=== PATIENT | female | born 1960 | race Caucasian/White ===

== ENCOUNTER → 2016-12-16 | Outpatient (CLI) | payer OTHER ==
[~2016-12-16] MED LIST: ALBU0.086 INH; AMIT25 PO; AMOX875T PO; ASPI81TA45 PO; BLAC20TA PO; CHOL50006 PO; ENAL20TA81 PO; FLOV44AE IN; FOLI1 PO; FOSA70TA PO; GLUCTAB PO; HYDR-2768 PO; MAGN250T13 PO; METH2.5 PO; MIRA33502 PO; OMEG100037 PO; OMPR20CCR PO; SIMV20 PO; TAB-TAB PO; TRAM50TA PO; XANA1TAB6 PO
--- NOTE | 2016-12-17 21:18 | EKG ---
Date Performed: 12/16/2016 Time Performed: 14:19:07 PTAGE: 56 years EKG: Sinus rhythm NONSPECIFIC T-WAVE ABNORMALITY BORDERLINE ECG PREVIOUS TRACING : 12/06/2013 09.34 DOCTOR: Jacobo Ferrera Interpretating Date/Time 12/17/2016 21:08:46
== END ==
LOC: HCAV 14:02
PROVIDERS: ATTEND Internal Medicine Gastroenterology
DX: I10 Essential (primary) hypertension (principal); R94.31 Abnormal electrocardiogram [ECG] [EKG]
CPT/HCPCS: 93005

== ENCOUNTER 2017-01-12 20:12 | Emergency (ER) | payer OTHER ==
[~2017-01-12] VITALS: Ht 165.1 cm; Wt 99.2 kg
[~2017-01-12 20:12] MED LIST changes: -AMOX875T PO
[2017-01-12 20:22] VITALS: BP 139/85; PULSE 91; RESP 18; TEMP 98.9; O2SAT 96
--- NOTE | 2017-01-12 21:57 | PD ---
HPI Chief Complaint: ENT Complaint Time Seen by Provider: 21:56 Travel History International Travel<30 days: No Contact w/Intl Traveler<30days: No Traveled to known affect area: No History of Present Illness HPI 56-year-old female with a history of hypertension, hyperlipidemia, diabetes, asthma presents to the emergency department for evaluation of right ear pain for 2 weeks. Patient states that both of her ears were hurting and she saw her PCP 2 weeks ago and was told that they were slightly red but that she didn't require an antibiotic, was given some eardrops which she used and helped for the first 2 days. States that since then the pain is worsening for the past 2 weeks. States that the pain is aggravated with swallowing, causes her ear to her. Denies any fever, chills, nausea, vomiting, cough or cold symptoms, decreased hearing, dizziness. No other complaints. PFSH Past Medical History Asthma: Yes Autoimmune Disease: Yes (RHEUMATOID ARTHRITIS) Blood Disorders: No Anxiety: Yes Cancer: No Cardiac Catheterization: No Cardiovascular Problems: No High Cholesterol: Yes Cerebrovascular Accident: Yes Diabetes: Yes Diminished Hearing: No Endocrine: No Fibromyalgia: Yes Gastrointestinal Disorders: Yes (REFLUX) GERD: Yes Genitourinary: No Headaches: Yes Hepatitis: No Hiatal Hernia: No Hypertension: Yes Immune Disorder: No Inguinal Hernia: Yes (UMBILLICAL, SURGICALLY REPAIRED) Musculoskeletal: Yes (RHEUMATOID ARTHRITIS, FIBROMYALGIA) Neurologic: No Psychiatric: No Reproductive: No Respiratory: No Immunizations Current: Yes Myocardial Infarction: No Pneumonia: Yes (CHILDHOOD) Thyroid Disease: No ?: Not Menopausal: Yes : 5 Para: 4 : 1 Ovarian Cysts: Yes Past Surgical History Abdominal Surgery: Yes (UMB. HERNIA) AICD: No Cardiac Surgery: No Section: Yes (X 4) Coronary Artery Bypass Graft: No Ear Surgery: No Endocrine Surgery: No Eye Surgery: No Genitourinary Surgery: No Gynecologic Surgery: Yes (4 C-SECT.) Joint Replacement: No Oral Surgery: No Pacemaker: No Thoracic Surgery: No Other Surgery: Yes (umbilical hernia repair 01) Social History Alcohol Use: No Tobacco Use: No Substance Use: No Allergies-Medications (Allergen,Severity, Reaction): Coded Allergies: Codeine (Verified Allergy, Severe, RASH,HIVES, 01/12/17) Reported Meds & Prescriptions Reported Meds & Active Scripts Active Amoxicillin 875 Mg Tab 875 Mg PO BID 10 Days Rheumatrex (Methotrexate) 2.5 Mg Tab 15 Mg PO WEEKLY 30 Days Tramadol Hcl (Tramadol HCl) 50 Mg Tab 50 Mg PO QID NO EARLY REFILLS Folate 1 Mg Tab (Folic Acid) 1 Mg Tab 1 Mg PO DAILY Vasotec (Enalapril Maleate) 20 Mg Tab 20 Mg PO DAILY Glucophage XR 24 HR (Metformin HCl) 500 Mg Tab 500 Mg PO BIDAC Zocor (Simvastatin) 20 Mg Tab 20 Mg PO HS Elavil 25 Mg Tab (Amitriptyline Hcl) 25 Mg Tab 25 Mg PO HS Reported Multivitamin (Multivitamins) 1 Tab Tab 1 Tab PO DAILY Fish Oil 1000 mg (Golden-3 Fatty Acids) 1 Cap Cap 1 Tab PO DAILY Prilosec 20 Mg Cap (Omeprazole) 20 Mg Capcr 20 Mg PO DAILY Aspirin 81 mg EC Lo-Dose (Aspirin) 81 Mg Tab 81 Mg PO DAILY Vitamin D (Cholecalciferol) 5,000 Unit Tab 5,000 Unit PO DAILY Xanax 1 mg (Alprazolam) Alprazolam 1 mg Tab 1 Tab PO Q6H PRN Flovent [id number] Mc1 44 Mcg Aer 2 Puff IN BID Fosamax (Alendronate Sodium) 70 Mg Tab 70 Mg PO Q7D TAKE 30 MINUTES BEFORE THE MORNING MEAL, ONLY WATER Magnesium 250 Mg Tab 250 Mg PO [id number] N1 255 Gm Powd 1 Capful PO BID MIX 1 CAPFUL (17 GM) IN 8 OZ WATER Proventil Ud 0.083% (2.5 Mg/3 Ml) (Albuterol Sulfate) 2.5 Mg/3 Ml Inha 2.5 Mg INH Q4 Black Cohosh 20 Mg Tab 20 Mg PO BID Hctz (Hydrochlorothiazide) 25 Mg Tab 25 Mg PO DAILY Review of Systems Except as stated in HPI: all other systems reviewed are Neg Physical Exam Narrative GENERAL: Well-nourished and well-developed pleasant patient in no acute distress who is nontoxic appearing. SKIN: Warm and dry. HEAD: Normocephalic and atraumatic. EYES: No injection, drainage, or hyphema noted. PERRLA. EOMI. ENT: No nasal drainage noted. Oropharynx is clear. Right tympanic membranes is erythematous with effusion. Left tympanic membrane has effusion. No mastoid tenderness. NECK: Supple and the trachea is midline. No lymphadenopathy is noted throughout the cervical chains. CARDIOVASCULAR: Regular rate and rhythm. RESPIRATORY: Breath sounds are equal bilaterally with no accessory muscle use, wheezing, rhonchi, or crackles. NEUROLOGICAL: Awake, alert, and oriented. Normal speech and gait. Cranial nerves are grossly intact. Data Data Last Documented VS Vital Signs Date Time Temp Pulse Resp B/P Pulse Ox O2 Delivery O2 Flow Rate FiO2 01/12/17 20:22 98.9 91 18 139/85 96 Orders Amoxicillin (Trimox) (01/12/17 22:00) [facility] Medical Decision Making Medical Screen Exam Complete: Yes Emergency Medical Condition: Yes Differential Diagnosis Acute otitis media versus otitis externa versus URI versus less likely mastoiditis Narrative Course 56-year-old female presents to the emergency department for evaluation of right ear pain for 2 weeks. Patient is afebrile, vital signs are stable. As his otitis media with effusion. Patient will be treated with amoxicillin. Discussed supportive care. Advise follow-up with her PCP. Patient verbalizes understanding and agreement with treatment plan. Diagnosis Primary Impression: Right otitis media with effusion Referrals: Primary Care Physician Patient Instructions: General Instructions, Otitis Media (ED) Additional Instructions: Take [id number] Claritin. Take medication as prescribed. Follow-up with your Primary Care Physician. Return to the ED for any acute worsening of symptoms. Med/Other Pt SpecificInfo: Prescription(s) given Scripts Amoxicillin 875 Mg [id number] Mg PO BID 10 Days Ref 0 Prov:Re Palacio MD 01/12/17 Disposition: 01 DISCHARGE HOME Condition: Stable Laney Mejia Jan 12, 2017 21:57
[2017-01-12] MEDS ORDERED: AMOX875T PO (21:58)
[2017-01-12] MEDS ORDERED: AMOXICILLIN 875 MG TAB PO ONE (22:00)
== END 2017-01-12 23:11 | disposition home or self-care (01) ==
LOC: PHED 20:12 → PHEFT 23:11
DX: H66.91 Otitis media, unspecified, right ear (principal); I10 Essential (primary) hypertension; E11.9 Type 2 diabetes mellitus without complications; J45.909 Unspecified asthma, uncomplicated; E78.00 Pure hypercholesterolemia, unspecified
CPT/HCPCS: 99282

== ENCOUNTER 2017-12-03 14:39 | Emergency (ER) | payer OTHER ==
[~2017-12-03] VITALS: Ht 165.1 cm; Wt 95.0 kg
[~2017-12-03 14:39] MED LIST changes: +AMOX875T PO
[2017-12-03 14:42] VITALS: BP 136/71; PULSE 89; RESP 16; TEMP 98.2; O2SAT 98
[2017-12-03] MEDS ORDERED: GABA300C5 PO (15:05)
[2017-12-03] MEDS ORDERED: CANA300T PO (15:05)
[2017-12-03] MEDS ORDERED: METH2.5T PO (15:06)
[2017-12-03] MEDS ORDERED: HYDR25TA5 PO (15:06)
[2017-12-03] MEDS ORDERED: ALPR.5 PO (15:06)
[2017-12-03] MEDS ORDERED: VENTAER INH (15:06)
[2017-12-03] MEDS ORDERED: AMIT25TA9 PO (15:06)
[2017-12-03] MEDS ORDERED: ENAL20TA PO (15:06)
[2017-12-03] MEDS ORDERED: GLIP5TAB8 PO (15:06)
[2017-12-03] MEDS ORDERED: ALEN1TAB48 PO (15:06)
[2017-12-03] MEDS ORDERED: TRAM50TA PO (15:06)
--- NOTE | 2017-12-03 15:09 | PD ---
HPI Chief Complaint: ENT Complaint Time Seen by Provider: 14:49 Travel History International Travel<30 days: No Contact w/Intl Traveler<30days: No Traveled to known affect area: No History of Present Illness HPI 57-year-old female presents to the ED for evaluation of 5 day history of right ear pain. Gradual onset. Rated 8/10. Patient states that the pain radiates into the neck. Exacerbated by chewing. Patient denies fever, chills, hearing difficulties, runny nose, cold symptoms, difficulties opening and closing the mouth, recent history of swimming, use of cotton swabs. She states that she occasionally has thin drainage from the ear when she wakes up in the morning. She never had a pain like this before. Treated at home with Tylenol and ibuprofen with only some improvement of symptoms. PFSH Past Medical History Hx Anticoagulant Therapy: Yes (BABY ASA) Asthma: Yes Autoimmune Disease: Yes (RHEUMATOID ARTHRITIS) Blood Disorders: No Anxiety: Yes Cancer: No Cardiac Catheterization: No Cardiovascular Problems: Yes (HTN, CHOL) High Cholesterol: Yes Cerebrovascular Accident: Yes Diabetes: Yes Diminished Hearing: No Endocrine: No Fibromyalgia: Yes Gastrointestinal Disorders: Yes (REFLUX) GERD: Yes Genitourinary: No Headaches: Yes Hepatitis: No Hiatal Hernia: No Hypertension: Yes Immune Disorder: No Inguinal Hernia: Yes (UMBILLICAL, SURGICALLY REPAIRED) Musculoskeletal: Yes (RHEUMATOID ARTHRITIS, FIBROMYALGIA) Neurologic: No Psychiatric: No Reproductive: No Respiratory: No Immunizations Current: Yes Myocardial Infarction: No Pneumonia: Yes (CHILDHOOD) Thyroid Disease: No ?: Not Menopausal: Yes : 5 Para: 4 : 1 Ovarian Cysts: Yes Past Surgical History Abdominal Surgery: Yes (UMB. HERNIA) AICD: No Cardiac Surgery: No Section: Yes (X 4) Coronary Artery Bypass Graft: No Ear Surgery: No Endocrine Surgery: No Eye Surgery: No Genitourinary Surgery: No Gynecologic Surgery: Yes (4 C-SECT.) Joint Replacement: No Oral Surgery: No Pacemaker: No Thoracic Surgery: No Other Surgery: Yes (umbilical hernia repair 01) Social History Alcohol Use: No Tobacco Use: No Substance Use: No Allergies-Medications (Allergen,Severity, Reaction): Coded Allergies: codeine (Unverified Allergy, Severe, RASH,HIVES, 12/03/17) Reported Meds & Prescriptions Reported Meds & Active Scripts Active Pseudoephedrine (Pseudoephedrine HCl) 60 Mg Tab 60 Mg PO Q6H PRN 7 Days Ciprodex Otic Drops (Ciprofloxacin-Dexamethasone Otic Drops) 0.3-0.1% Susp 4 Drop RIGHT EAR BID 7 Days Reported Ventolin Hfa 18 GM Inh (Albuterol Sulfate) 90 Mcg/Act Aer 2 Puff INH Q6H PRN Glipizide 5 Mg Tab 5 Mg PO DAILY Take 30 minutes before a meal Xanax (Alprazolam) 0.5 Mg Tab 0.5 Mg PO Q6H PRN Alendronate (Alendronate Sodium) 70 Mg Tab 70 Mg PO Q7D Tramadol (Tramadol HCl) 50 Mg Tab 50 Mg PO Q6H PRN Methotrexate 2.5 Mg Tab 15 Mg PO Q7D Amitriptyline (Amitriptyline HCl) 25 Mg Tab 25 Mg PO HS Hydrochlorothiazide 25 Mg Tab 25 Mg PO DAILY Enalapril (Enalapril Maleate) 20 Mg Tab 40 Mg PO DAILY Invokana (Canagliflozin) 300 Mg Tab 300 Mg PO HS Take before 1st meal of day. Gabapentin 300 Mg Cap 300 Mg PO HS Review of Systems Except as stated in HPI: all other systems reviewed are Neg Physical Exam Narrative GENERAL: Well-nourished, well-developed white female in no acute distress. SKIN: Warm and dry. HEAD: Normocephalic. Atraumatic. EYES: No scleral icterus. No injection or drainage. PERRLA. EOMI. ENT: Pearly reeder tympanic membranes bilaterally. Bilateral serous effusions. Tug test positive on the right. Right external canal erythematous with small amount of thin exudate. Nasal mucosa is moist. Oropharynx without erythema, edema or exudate. NECK: Supple, trachea midline. No JVD or lymphadenopathy. CARDIOVASCULAR: Regular rate and rhythm without murmurs, gallops, or rubs. RESPIRATORY: Breath sounds clear and equal bilaterally. No accessory muscle use. GASTROINTESTINAL: Abdomen soft, non-tender, nondistended. + Bowel sounds MUSCULOSKELETAL: No cyanosis, or edema. Full, active range of motion. Strength 5/5. Neurovascularly intact. BACK: Nontender without obvious deformity. No CVA tenderness. Data Data Last Documented VS Vital Signs Date Time Temp Pulse Resp B/P (MAP) Pulse Ox O2 Delivery O2 Flow Rate FiO2 12/03/17 14:42 98.2 89 16 136/71 (24) 98 [facility] Medical Decision Making Medical Screen Exam Complete: Yes Emergency Medical Condition: Yes Differential Diagnosis Otitis externa versus otitis media versus mastoiditis versus other Narrative Course 57-year-old female presents to the ED for evaluation of 5 day history of right ear pain. Gradual onset. Rated 8/10. Patient states that the pain radiates into the neck. Exacerbated by chewing. Patient denies fever, chills, hearing difficulties, runny nose, cold symptoms, difficulties opening and closing the mouth, recent history of swimming, use of cotton swabs. She states that she occasionally has thin drainage from the ear when she wakes up in the morning. She never had a pain like this before. Patient afebrile on presentation. Physical exam reveals bilateral serous effusions without signs of otitis media. Tub test is positive on the right. The right external canal is erythematous with scant thin drainage. This is otitis externa. Patient's prescribed Ciprodex drops twice a day. She is also prescribed short course of pseudoephedrine to clear her serous effusions. She is instructed to use medications as prescribed, nothing else in the ear, continue with OTC pain medications as needed, return to the ED for worsening symptoms. She indicated understanding of instructions and is agreeable to care plan. She is stable and discharged home. Diagnosis Primary Impression: Right otitis externa Qualified Codes: H60.311 - Diffuse otitis externa, right ear Referrals: Ear / Nose / Throat Specialist Patient Instructions: General Instructions, Otitis Externa (ED) Additional Instructions: Rest, hydrate. Instill drops as prescribed. Nothing else in the ear. Sudafed every 4 hours as needed for congestion. Continue with Tylenol and ibuprofen as needed for pain and fever. Follow-up with the gear tester. Return to the ED for worsening symptoms or any urgent or emergent medical condition. Med/Other Pt SpecificInfo: Prescription(s) given Scripts Pseudoephedrine (Pseudoephedrine) 60 Mg Tab 60 MG PO Q6H Y for NASAL CONGESTION for 7 Days, #28 TAB 0 Refills Prov: Denny Olson MD 12/03/17 Ciprofloxacin-Dexamethasone Otic Drops (Ciprodex Otic Drops) 0.3-0.1% Susp 4 DROP RIGHT EAR BID for Infection for 7 Days, #1 BOTTLE 0 Refills Prov: Denny Olson MD 12/03/17 Disposition: 01 DISCHARGE HOME Condition: Sue Sorensen Dec 03, 2017 15:09
[2017-12-03] MEDS ORDERED: SUDO60TA2 PO (15:12)
[2017-12-03] MEDS ORDERED: CIPR0.3S RIGHT EAR (15:12)
== END 2017-12-03 15:49 | disposition home or self-care (01) ==
LOC: PHEFT 14:39
DX: H60.91 Unspecified otitis externa, right ear (principal); J45.909 Unspecified asthma, uncomplicated; M06.9 Rheumatoid arthritis, unspecified; I10 Essential (primary) hypertension; E11.9 Type 2 diabetes mellitus without complications; E78.00 Pure hypercholesterolemia, unspecified; M79.7 Fibromyalgia; K21.9 Gastro-esophageal reflux disease without esophagitis; Z86.73 Personal history of transient ischemic attack (TIA), and cerebral infarction without residual deficits
CPT/HCPCS: 99283

== ENCOUNTER 2018-01-18 18:34 | Emergency (ER) | payer OTHER ==
[~2018-01-18] VITALS: Ht 165.1 cm; Wt 93.6 kg
[~2018-01-18 18:34] MED LIST changes: -ALBU0.086 INH; +ALEN1TAB48 PO; +ALPR.5 PO; -AMIT25 PO; +AMIT25TA9 PO; -AMOX875T PO; -ASPI81TA45 PO; -BLAC20TA PO; +CANA300T PO; -CHOL50006 PO; +CIPR0.3S RIGHT EAR; +ENAL20TA PO; -ENAL20TA81 PO; -FLOV44AE IN; -FOLI1 PO; -FOSA70TA PO; +GABA300C5 PO; +GLIP5TAB8 PO; -GLUCTAB PO; -HYDR-2768 PO; +HYDR25TA5 PO; -MAGN250T13 PO; -METH2.5 PO; +METH2.5T PO; -MIRA33502 PO; -OMEG100037 PO; -OMPR20CCR PO; -SIMV20 PO; +SUDO60TA2 PO; -TAB-TAB PO; +VENTAER INH; -XANA1TAB6 PO
[2018-01-18 18:45] VITALS: BP 107/60; PULSE 92; RESP 20; TEMP 100.2; O2SAT 98
[2018-01-18] MEDS ORDERED: HYDR25TA5 PO (19:23)
[2018-01-18] MEDS ORDERED: ALPR.5 PO (19:23)
--- NOTE | 2018-01-18 19:24 | PD ---
HPI Chief Complaint: Cold / Flu Symptoms Time Seen by Provider: 19:17 Travel History International Travel<30 days: No Contact w/Intl Traveler<30days: No Traveled to known affect area: No History of Present Illness HPI Patient comes in the emergency department complaining of cough, congestion, fevers, generalized body aches, and nonbloody diarrhea that began yesterday. Patient reports tested positive for flu earlier today. Patient reports taking Tylenol for this last dose around 2:00 today. Patient denies any nausea , vomiting, chest pain, shortness of breath, neck pain, abdominal pain, change in bladder or back pain. Denies anything making symptoms worse. PFSH Past Medical History Hx Anticoagulant Therapy: Yes (BABY ASA) Asthma: Yes Autoimmune Disease: Yes (RHEUMATOID ARTHRITIS) Blood Disorders: No Anxiety: Yes Cancer: No Cardiac Catheterization: No Cardiovascular Problems: Yes (HTN, CHOL) High Cholesterol: Yes Cerebrovascular Accident: Yes Diabetes: Yes Patient Takes Glucophage: No Diminished Hearing: No Endocrine: No Fibromyalgia: Yes Gastrointestinal Disorders: Yes (REFLUX) GERD: Yes Genitourinary: No Headaches: Yes Hepatitis: No Hiatal Hernia: No Hypertension: Yes Immune Disorder: No Inguinal Hernia: Yes (UMBILLICAL, SURGICALLY REPAIRED) Musculoskeletal: Yes (RHEUMATOID ARTHRITIS, FIBROMYALGIA) Neurologic: No Psychiatric: No Reproductive: No Respiratory: No Immunizations Current: Yes Myocardial Infarction: No Pneumonia: Yes (CHILDHOOD) Thyroid Disease: No Tetanus Vaccination: > 5 Years Influenza Vaccination: No ?: Not Menopausal: Yes : 5 Para: 4 : 1 Ovarian Cysts: Yes Past Surgical History Abdominal Surgery: Yes (UMB. HERNIA) AICD: No Cardiac Surgery: No Section: Yes (X 4) Coronary Artery Bypass Graft: No Ear Surgery: No Endocrine Surgery: No Eye Surgery: No Genitourinary Surgery: No Gynecologic Surgery: Yes (4 C-SECT.) Joint Replacement: No Oral Surgery: No Pacemaker: No Thoracic Surgery: No Other Surgery: Yes (umbilical hernia repair ) Social History Alcohol Use: No Tobacco Use: No Substance Use: No Allergies-Medications (Allergen,Severity, Reaction): Coded Allergies: codeine (Unverified Allergy, Severe, RASH,HIVES, 01/18/18) Reported Meds & Prescriptions Reported Meds & Active Scripts Active Zofran Odt (Ondansetron Odt) 4 Mg Tab 4 Mg SL Q6HR PRN Tamiflu (Oseltamivir Phosphate) 75 Mg Cap 75 Mg PO BID 5 Days Reported Xanax (Alprazolam) 0.5 Mg Tab 0.5 Mg PO Q4H PRN Hydrochlorothiazide 25 Mg Tab 25 Mg PO DAILY Ventolin Hfa 18 GM Inh (Albuterol Sulfate) 90 Mcg/Act Aer 2 Puff INH Q6H PRN Glipizide 5 Mg Tab 5 Mg PO DAILY Take 30 minutes before a meal Alendronate (Alendronate Sodium) 70 Mg Tab 70 Mg PO Q7D Tramadol (Tramadol HCl) 50 Mg Tab 50 Mg PO Q6H PRN Methotrexate 2.5 Mg Tab 15 Mg PO Q7D Amitriptyline (Amitriptyline HCl) 25 Mg Tab 25 Mg PO HS Enalapril (Enalapril Maleate) 20 Mg Tab 40 Mg PO DAILY Invokana (Canagliflozin) 300 Mg Tab 300 Mg PO HS Take before 1st meal of day. Gabapentin 300 Mg Cap 300 Mg PO HS Review of Systems Except as stated in HPI: all other systems reviewed are Neg Physical Exam Narrative GENERAL: Well-developed, overly nourished, in no acute distress, and non-ill appearing. SKIN: Focused skin assessment warm and dry. HEAD: Atraumatic. Normocephalic. EYES: Pupils equal and round. EOMI. No scleral icterus. No injection or drainage. ENT: No nasal bleeding or discharge. Mucous membranes pink and moist. Tympanic membranes pearly reeder bilaterally. Posterior pharynx non-Erythematous and without exudate. Uvula is midline. No tenderness to facial sinuses to palpation. NECK: Trachea midline. No cervical lymphadenopathy. Supple. No nuclear rigidity. CARDIOVASCULAR: Regular rate and rhythm. No murmur appreciated. RESPIRATORY: No accessory muscle use. No respiratory distress. Clear to auscultation. Breath sounds equal bilaterally. GASTROINTESTINAL: Abdomen soft, non-tender, nondistended, and no guarding. Hepatic and splenic margins not palpable. Normal bowel sounds x4. No pulsatile mass. MUSCULOSKELETAL: No obvious deformities. No clubbing. No cyanosis. No edema. Full range of motion. NEUROLOGICAL: Awake and alert. No obvious cranial nerve deficits. Motor grossly within normal limits. Normal speech. PSYCHIATRIC: Appropriate mood and affect; insight and judgment normal. Data Data Last Documented VS Vital Signs Date Time Temp Pulse Resp B/P (MAP) Pulse Ox O2 Delivery O2 Flow Rate FiO2 01/18/18 18:45 100.2 92 20 107/60 (76) 98 Orders Orders Influenzae A/B Antigen (01/18/18 19:12) Group A Rapid Strep Screen (01/18/18 19:12) Ibuprofen (Motrin) (01/18/18 19:30) Strep Culture (Group A) (01/18/18 19:20) Ed Discharge Order (01/18/18 19:42) MDM Medical Decision Making Medical Screen Exam Complete: Yes Emergency Medical Condition: Yes Differential Diagnosis Influenza, strep pharyngitis, viral syndrome, URI Narrative Course Patient looks great. Patients symptom complex is consistent with Influenza, or flu-like illness. The patient is tolerating fluids and is well hydrated. There is no evidence to suggest secondary infection (pneumonia, sepsis/bacteremia, etc.) at this time. I discussed with the patient, diagnosis, and plan of care and to follow up with the patients primary physician. Flu prep is positive. I discussed with the patient initiating Tamiflu and the patient agreed with plan. The patient was instructed to return if the worsens in anyway, especially if not tolerating fluids, increased pain or swelling, difficulty swallowing or breathing, or as needed. The patient agreed with plan. Patient in no obvious distress upon re-evaluation. All pertinent laboratory result(s) discussed with patient. Patient was asked if they wanted to speak to my attending, which the patient did not wish to do at this time. Any questions/ concerns in reference to patient diagnosis/condition discussed and clarified prior to patient's discharge. Reinforced sheer importance of close follow up with patient's primary physician or primary care clinic. Instructed patient to return to ED immediately, if symptoms return/worsen. Patient showed understanding of above instructions. Further instructions and recommendations were detailed in discharge paperwork. Patient ambulated without difficulty out of ED at discharge. Diagnosis Primary Impression: Influenza A [facility] Patient Instructions: General Instructions, Influenza (ED) Additional Instructions: Follow-up with your primary care physician in 3-5 days for reevaluation. Take all medication as prescribed. Use [id number] Tylenol and ibuprofen as needed for pain and fever control. Follow instructions on the packaging. Drink plenty of non-caffeinated and nonalcoholic fluids. Return to the emergency department if symptoms get worse. Med/Other Pt SpecificInfo: Prescription(s) given Scripts Ondansetron Odt (Zofran Odt) 4 Mg Tab 4 MG SL Q6HR Y for Nausea/Vomiting, #12 TAB 0 Refills Prov: Denny Olson MD 01/18/18 Oseltamivir (Tamiflu) 75 Mg Cap 75 MG PO BID for Mgmt Viral Infection for 5 Days, #10 CAP 0 Refills Prov: Denny Olson MD 01/18/18 Disposition: 01 DISCHARGE HOME Condition: Stable Adam Simeon Jan 18, 2018 19:23
[2018-01-18] MEDS ORDERED: IBUPROFEN 800 MG TAB PO ONE (19:30)
[2018-01-18] MEDS ORDERED: OSEL75 PO (19:41)
[2018-01-18] MEDS ORDERED: ZOFR4TAB3 SL (19:41)
== END 2018-01-18 19:58 | disposition home or self-care (01) ==
LOC: PHEFT 18:34
DX: J09.X2 Influenza due to identified novel influenza A virus with other respiratory manifestations (principal); R05 Cough; R50.9 Fever, unspecified; R19.7 Diarrhea, unspecified; E11.9 Type 2 diabetes mellitus without complications; I10 Essential (primary) hypertension; M06.9 Rheumatoid arthritis, unspecified; M79.7 Fibromyalgia; K21.9 Gastro-esophageal reflux disease without esophagitis; E78.00 Pure hypercholesterolemia, unspecified; F41.9 Anxiety disorder, unspecified; Z79.84 Long term (current) use of oral hypoglycemic drugs
CPT/HCPCS: 87081; 87804; 87880; 99283